=== PATIENT | female | born 2000 | race American Indian/Alaskan Native ===

== ENCOUNTER 2018-01-27 13:02 | Inpatient (IN) | payer BC ==
[2018-01-27] MEDS ORDERED: Sodium Chloride 0.9% 1,000 ML IV ONE (13:51)
[2018-01-27] MEDS ORDERED: Enoxaparin 40 mg Syringe SC STA (13:53)
--- NOTE | 2018-01-27 13:54 | C.PDOC ---
History Of Present Illness 17 year old female presents to the emergency room accompanied by her family with complaints of right leg swelling from her knee down to her foot for the last weeks. She reports that she sprained her knee three weeks ago while dancing. She decided two weeks ago to wear a knee brace. While wearing the knee brace, she dropped a bottle on her foot at work approx 1 week ago and reports that her lower leg began to swell. Time Seen by Provider: 01/27/18 13:22 Chief Complaint (Nursing): Lower Extremity Problem/Injury History Per: Patient History/Exam Limitations: no limitations Onset/Duration Of Symptoms: Days (3 weeks) Current Symptoms Are (Timing): Still Present - Knee Description Of Injury: Fell (while dancing) - Ankle/Foot Description Of Injury: Other (dropped an object on her foot while at work) Past Medical History Reviewed: Historical Data, Nursing Documentation, Vital Signs Vital Signs: Last Vital Signs Temp 98 F 01/27/18 17:13 Pulse 92 H 01/27/18 17:13 Resp 20 01/27/18 17:13 BP 107/68 01/27/18 17:13 Pulse Ox 97 01/27/18 17:13 - Medical History PMH: No Chronic Diseases Surgical History: No Surg Hx Family History: States: No Known Family Hx - Social History Hx Alcohol Use: No Hx Substance Use: No - Immunization History Hx Tetanus Toxoid Vaccination: No Hx Influenza Vaccination: No Hx Pneumococcal Vaccination: No Review Of Systems Except As Marked, All Systems Reviewed And Found Negative. Musculoskeletal: Positive for: Leg Pain (sprain, swelling.) Physical Exam - Physical Exam Appears: Well, Non-toxic Skin: Normal Color, Warm Head: Atraumatic, Normacephalic Eye(s): bilateral: Normal Inspection Ear(s): Bilateral: Normal Nose: Normal Oral Mucosa: Moist Tongue: Normal Appearing Neck: Normal, Supple Chest: Symmetrical Cardiovascular: Rhythm Regular Respiratory: Normal Breath Sounds Gastrointestinal/Abdominal: Normal Exam Extremity: Pedal Edema (3/4 pitting edema to the right lower leg.) Neurological/Psych: Oriented x3, Normal Speech, Normal Cognition ED Course And Treatment - Laboratory Results Result Diagrams: 01/27/18 14:06 01/27/18 14:06 Lab Interpretation: Abnormal (+ d-dimer 759 H) Urine POC: Negative ECG: Interpreted By Me ECG Rhythm: Sinus Rhythm ECG Interpretation: Normal (74) O2 Sat by Pulse Oximetry: 97 (RA) Pulse Ox Interpretation: Normal - Radiology CXR: Interpreted by Me CXR Interpretation: Yes: No Acute Disease - Other Rad R foot X-Ray: Interpreted by Me (neg) Reevaluation Time: 15:56 (\) Reassessment Condition: Improved - Physician Consult Information Outcome Of Conversation: 1515: d/w Dr. Pennie Tolentino, ok to admit. 1600: d/w Dr. Piero Lamar- pt's signalling and communications engineer- discussed option to discharge and/or transfer to [facility] close to pt's mother's house. pt too old to admit as a Pediatric pt and [facility] does not have heme/onc consult so pt better served @ - pt's mom and Automated Manufacturing Instructor have discussed and agree pt to stay @ . Medical Decision Making Medical Decision Making: Plan: * ECG * Bloodwork * Lovenox 50mg SC * IV Medications * Tylenol 650mg PO * Urinalysis * Foot X-Ray acute DVT R peroneal probably provoked by R knee brace x 1 week after R knee sprain No h/o coagulation issues. INR 1.0 Impression: Foot X-Ray: no acute fracture or dislocation. 14:59pm Right Lower Extremity: abnormal findings of deep vein at the peroneal vein. Left Lower Extremity: no abnormal findings of the examined veins. Disposition Doctor Will See Patient In The: Hospital Counseled Patient/Family Regarding: Studies Performed, Diagnosis - Disposition Disposition: HOSPITALIZED Disposition Time: 16:01 Condition: GOOD - Clinical Impression Clinical Impression: Deep venous thrombosis of lower extremity - Scribe Statement The provider has reviewed the documentation as recorded by the Scribe (Markie Donny) Provider Attestation: All medical record entries made by the Scribe were at my direction and personally dictated by me. I have reviewed the chart and agree that the record accurately reflects my personal performance of the history, physical exam, medical decision making, and the department course for this patient. I have also personally directed, reviewed, and agree with the discharge instructions and disposition.
[2018-01-27 14:10] LABS: BASO # 0.1 K/uL (0.0-0.2); BASO % 1.3 % (0.0-2.0); EOS # 0.6 K/uL (0.0-0.7); EOS % 9.1 % (0.0-4.0); HEMOGLOBIN 11.9 g/dL (11.0-16.0); LYMPH # 1.2 K/uL (1.0-4.3); LYMPH % 17.8 % (20.0-40.0); MEAN CELL VOLUME 88.8 fL (81.0-99.0); MEAN CORPUSCULAR HEMOGLOBIN 29.2 pg (27.0-31.0); MEAN CORPUSCULAR HGB CONC 32.9 g/dL (33.0-37.0); MEAN PLATELET VOLUME 8.3 fL (7.2-11.7); MONO # 0.4 K/uL (0.0-0.8); MONO % 6.4 % (0.0-10.0); NEUT # 4.4 K/uL (1.8-7.0); NEUT % 65.4 % (50.0-75.0); RBC 4.09 Mil/uL (3.80-5.20); RED CELL DISTRIBUTION WIDTH 13.6 % (11.5-14.5); WHITE BLOOD COUNT 6.7 K/uL (4.8-10.8)
[2018-01-27 14:19] LABS: SQUAMOUS EPITHIAL 70 /hpf (0-5); URINE BACTERIA MANY (<OCC); URINE BILIRUBIN NEGATIVE (NEGATIVE); URINE BLOOD NEGATIVE (NEGATIVE); URINE CLARITY Hazy (Clear); URINE COLOR Amber (YELLOW); URINE GLUCOSE (UA) NORMAL (Normal); URINE LEUKOCYTE ESTERASE 2+ Leu/uL (Negative); URINE PROTEIN 1+ mg/dL (NEGATIVE)
[2018-01-27] MEDS ORDERED: Enoxaparin 60 mg Syringe ONE (14:20)
[2018-01-27 14:23] LABS: ALB/GLOB RATIO 1.1 (1.0-2.1); ALBUMIN 4.1 g/dL (3.5-5.0); ALT/SGPT 9 U/L (9-52); AST/SGOT 22 U/L (14-36); BLOOD UREA NITROGEN 8 mg/dL (7-17); CALCIUM 8.9 mg/dl (8.6-10.4); GFR AFRICAN-AMERICAN > 60; GFR NON-AFRICAN AMERICAN > 60; HCG,QUALITATIVE URINE NEGATIVE (NEGATIVE)
[2018-01-27 14:29] LABS: INR 1.1; PROTHROMBIN TIME 12.3 SECONDS (9.7-12.2)
[2018-01-27 14:34] LABS: B-TYPE NATRIURETIC PEPTIDE 34.3 pg/mL (0-450)
[2018-01-27 14:39] LABS: BARBITURATES, UR NEGATIVE (NEGATIVE); BENZODIAZEPINES, UR NEGATIVE (NEGATIVE); OPIATES, UR NEGATIVE (NEGATIVE); PHENCYCLIDINE, UR NEGATIVE (NEGATIVE)
--- NOTE | 2018-01-27 16:29 | RAD ---
PROCEDURE: Right Foot Radiographs. HISTORY: sprain foot 2 weeks ago COMPARISON: None. FINDINGS: BONES: Bone alignment and mineralization are normal. No acute fracture or bone destruction. JOINTS: Normal. SOFT TISSUES: Normal. OTHER FINDINGS: None. IMPRESSION: No acute fracture or dislocation.
--- NOTE | 2018-01-27 18:23 | CP.PCM.HP ---
History of Present Illness - History of Present Illness History of Present Illness: Patient is a 17 year old female who denies past medical history who presented with complaint right leg pain and swelling. Patient states about 3 weeks ago she was dancing and hurt her right knee. She denies twisting knee or falling. She states she was wearing soft brace on right knee and was ambulating with a limp. 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 She states at work about one week ago she dropped a glass bottle on right foot. She reports ecchymosis right lateral foot following that injury. She states she cannot move her right foot due to pain. She also reports shortness of breath for the past one week. She states she has needed to take breaks while climbing stairs due to dyspnea for the past week which is abnormal for her. She also reports pain on inspiration for the past week. She states pain in chest is deep inside and feels sharp and stabbing in nature. Patient's mother is at bedside and denies family history of blood clots or recurrent miscarriages. Patient denies history of oral contraceptives or smoking. Past Patient History - Past Social History Smoking Status: Never Smoked - MUSCULOSKELETAL/RHEUMATOLOGICAL Hx Falls: No - PSYCHIATRIC Hx Substance Use: No - SURGICAL HISTORY Hx Surgeries: No - ANESTHESIA Hx Anesthesia: No Hx Anesthesia Reactions: No Hx Malignant Hyperthermia: No Meds Allergies/Adverse Reactions: Allergies Allergy/AdvReac Type Severity Reaction Status Date / Time No Known Allergies Allergy Unverified 01/27/18 13:17 Physical Exam - Constitutional Appears: Well - Head Exam Head Exam: ATRAUMATIC, NORMAL INSPECTION, NORMOCEPHALIC - Eye Exam Eye Exam: EOMI, Normal appearance, PERRL Pupil Exam: NORMAL ACCOMODATION, PERRL - ENT Exam ENT Exam: Mucous Membranes Moist, Normal Exam - Neck Exam Neck exam: Positive for: Normal Inspection - Respiratory Exam Respiratory Exam: Decreased Breath Sounds - Cardiovascular Exam Cardiovascular Exam: REGULAR RHYTHM, +S1, +S2 - GI/Abdominal Exam GI & Abdominal Exam: Diminished Bowel Sounds, Soft - Rectal Exam Rectal Exam: Deferred Results - Vital Signs Recent Vital Signs: Last Vital Signs Temp 98 F 01/27/18 17:13 Pulse 92 H 01/27/18 17:13 Resp 20 01/27/18 17:13 BP 107/68 01/27/18 17:13 Pulse Ox 97 01/27/18 17:13 - Labs Result Diagrams: 01/28/18 06:17 01/28/18 06:17 Labs: Laboratory Results - last 24 hr 01/27/18 01/27/18 01/27/18 14:06 14:06 14:06 WBC 6.7 RBC 4.09 Hgb 11.9 Hct 36.3 MCV 88.8 MCH 29.2 MCHC 32.9 L RDW 13.6 Plt Count 338 MPV 8.3 Neut % (Auto) 65.4 Lymph % (Auto) 17.8 L Haywood % (Auto) 6.4 Eos % (Auto) 9.1 H Baso % (Auto) 1.3 Neut # (Auto) 4.4 Lymph # (Auto) 1.2 Haywood # (Auto) 0.4 Eos # (Auto) 0.6 Baso # (Auto) 0.1 PT 12.3 H INR 1.1 APTT 29 D-Dimer, Quantitative 759 H Sodium 141 Potassium 4.0 Chloride 103 Carbon Dioxide 28 Anion Gap 14 BUN 8 Creatinine 0.7 Est GFR ( Amer) > 60 Est GFR (Non-Af Amer) > 60 Random Glucose 95 Calcium 8.9 Total Bilirubin 0.5 AST 22 ALT 9 Alkaline Phosphatase 70 Troponin I < 0.0120 NT-Pro-B Natriuret Pep 34.3 Total Protein 7.7 Albumin 4.1 Globulin 3.6 Albumin/Globulin Ratio 1.1 Urine Color Urine Clarity Urine pH Ur Specific Riggins Urine Protein Urine Glucose (UA) Urine Ketones Urine Blood Urine Nitrate Urine Bilirubin Urine Urobilinogen Ur Leukocyte Esterase Urine WBC (Auto) Urine RBC (Auto) Ur Squamous Epith Cells Urine Bacteria Urine HCG, Qual Urine Opiates Screen Urine Methadone Screen Ur Barbiturates Screen Ur Phencyclidine Scrn Ur Amphetamines Screen U Benzodiazepines Scrn U Oth Cocaine Metabols U Cannabinoids Screen 01/27/18 01/27/18 14:06 14:06 WBC RBC Hgb Hct MCV MCH MCHC RDW Plt Count MPV Neut % (Auto) Lymph % (Auto) Haywood % (Auto) Eos % (Auto) Baso % (Auto) Neut # (Auto) Lymph # (Auto) Haywood # (Auto) Eos # (Auto) Baso # (Auto) PT INR APTT D-Dimer, Quantitative Sodium Potassium Chloride Carbon Dioxide Anion Gap BUN Creatinine Est GFR ( Amer) Est GFR (Non-Af Amer) Random Glucose Calcium Total Bilirubin AST ALT Alkaline Phosphatase Troponin I NT-Pro-B Natriuret Pep Total Protein Albumin Globulin Albumin/Globulin Ratio Urine Color Fernanda Urine Clarity Hazy Urine pH 6.0 Ur Specific Riggins 1.027 Urine Protein 1+ H Urine Glucose (UA) Normal Urine Ketones Trace Urine Blood Negative Urine Nitrate Positive H Urine Bilirubin Negative Urine Urobilinogen 4.0 H Ur Leukocyte Esterase 2+ H Urine WBC (Auto) 26 H Urine RBC (Auto) 2 Ur Squamous Epith Cells 70 H Urine Bacteria Many H Urine HCG, Qual Negative Urine Opiates Screen Negative Urine Methadone Screen Negative Ur Barbiturates Screen Negative Ur Phencyclidine Scrn Negative Ur Amphetamines Screen Negative U Benzodiazepines Scrn Negative U Oth Cocaine Metabols Negative U Cannabinoids Screen Negative
[2018-01-28 06:28] LABS: BASO # 0.1 K/uL (0.0-0.2); BASO % 1.2 % (0.0-2.0); EOS # 0.8 K/uL (0.0-0.7); EOS % 9.6 % (0.0-4.0); HEMOGLOBIN 11.5 g/dL (11.0-16.0); LYMPH # 2.3 K/uL (1.0-4.3); LYMPH % 27.3 % (20.0-40.0); MEAN CELL VOLUME 88.6 fL (81.0-99.0); MEAN CORPUSCULAR HEMOGLOBIN 29.2 pg (27.0-31.0); MEAN CORPUSCULAR HGB CONC 32.9 g/dL (33.0-37.0); MEAN PLATELET VOLUME 8.2 fL (7.2-11.7); MONO # 0.7 K/uL (0.0-0.8); MONO % 8.5 % (0.0-10.0); NEUT # 4.4 K/uL (1.8-7.0); NEUT % 53.4 % (50.0-75.0); NRBC % 0.1 % (0.0-2.0); RBC 3.94 Mil/uL (3.80-5.20); RED CELL DISTRIBUTION WIDTH 13.2 % (11.5-14.5); WHITE BLOOD COUNT 8.3 K/uL (4.8-10.8)
[2018-01-28 06:44] LABS: ALBUMIN 3.5 g/dL (3.5-5.0); ALT/SGPT 12 U/L (9-52); AST/SGOT 22 U/L (14-36); BLOOD UREA NITROGEN 5 mg/dL (7-17); CALCIUM 8.6 mg/dl (8.6-10.4); GFR AFRICAN-AMERICAN > 60; GFR NON-AFRICAN AMERICAN > 60
[2018-01-28] MEDS: Pantoprazole 40 mg EC Tab PO SCH (09:01)
[2018-01-28] MEDS ORDERED: Tramadol 25 mg PO PRN (09:37)
--- NOTE | 2018-01-28 09:50 | CP.PCM.PN ---
<Gypsy Marcial DO - Last Filed: 01/28/18 12:54> Subjective - Date & Time of Evaluation Date of Evaluation: 01/28/18 Time of Evaluation: 09:46 - Subjective Subjective: Medicine progress note for Dr. Tolentino's service Patient is a 17 year old female who denies past medical history who presented with complaint right leg pain and swelling. Patient states about 3 weeks ago she was dancing and hurt her right knee. She denies twisting knee or falling. She states she was wearing soft brace on right knee and was ambulating with a limp. 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 She states at work about one week ago she dropped a glass bottle on right foot. She reports ecchymosis right lateral foot following that injury. She states she cannot move her right foot due to pain. She also reports shortness of breath for the past one week. She states she has needed to take breaks while climbing stairs due to dyspnea for the past week which is abnormal for her. She also reports pain on inspiration for the past week. She states pain in chest is deep inside and feels sharp and stabbing in nature. Patient's mother is at bedside and denies family history of blood clots or recurrent miscarriages. Patient denies history of oral contraceptives or smoking. Objective - Vital Signs/Intake and Output Vital Signs (last 24 hours): Temp Pulse Resp BP Pulse Ox 97.9 F 64 18 99/64 L 100 01/28/18 07:30 01/28/18 07:30 01/28/18 07:30 01/28/18 07:30 01/28/18 07:30 - Medications Medications: Current Medications Acetaminophen (Tylenol 325mg Tab) 650 mg PO Q6 PRN PRN Reason: Pain, Mild (1-3) Enoxaparin Sodium (Lovenox) 60 mg SC DAILY [facility] Last Admin: 01/28/18 09:01 Dose: 60 mg Ibuprofen (Motrin Tab) 600 mg PO TID PRN PRN Reason: Pain, moderate (4-7) Pantoprazole Sodium (Protonix Ec Tab) 40 mg PO DAILY [facility] Last Admin: 01/28/18 09:01 Dose: 40 mg - Labs Labs: 01/28/18 06:17 01/28/18 06:17 PT 12.3 SECONDS (9.7-12.2) H 01/27/18 14:06 INR 1.1 01/27/18 14:06 APTT 29 SECONDS (21-34) 01/27/18 14:06 - Constitutional Appears: Non-toxic, No Acute Distress - Head Exam Head Exam: ATRAUMATIC, NORMOCEPHALIC - Eye Exam Eye Exam: EOMI - ENT Exam ENT Exam: Mucous Membranes Moist - Respiratory Exam Respiratory Exam: Clear to Ausculation Bilateral, NORMAL BREATHING PATTERN. absent: Chest Wall Tenderness - Cardiovascular Exam Cardiovascular Exam: +S1, +S2 - GI/Abdominal Exam GI & Abdominal Exam: Soft, Normal Bowel Sounds. absent: Tenderness - Extremities Exam Extremities Exam: absent: Calf Tenderness Additional comments: right lateral malleolus with ecchymotic lesion, diffuse tenderness on palpation of right foot, intact sensation to right foot and toes, patient cannot move foot due to pain - Neurological Exam Neurological Exam: Alert, Awake - Psychiatric Exam Psychiatric exam: Normal Affect, Normal Mood - Skin Skin Exam: Dry, Warm Assessment and Plan - Assessment and Plan (Free Text) Assessment: Acute Right leg DVT lower extremity venous duplex positive for acute dvt of right peroneal vein patient started on therapeutic lovenox, 60mg SC Q12h DVT seems to be provoked from prior injury and immobilization with knee brace, however will order hypercoaguable workup will continue to monitor for pain CTA chest positive for pulmonary embolus distal right lower lobe segmental pulmonary artery brach with some extension of the clot slightly distally into at least 2 proximal subsegmental branches Heme-onc, Dr. Gama, consulted-help appreciated Dyspnea patient experiencing pleuritic chest pain on inspiration CTA positive for pulmonary embolus as detailed above pulm consulted, Dr. Briscoe, help appreciated continue therapeutic lovenox Heme-onc on board Prophylactic measure therapeutic lovenox protonix 40mg PO daily PT A&D ointment for dry skin as needed Medical management as per Dr. Tolentino <Raman Tolentino S - Last Filed: 01/28/18 20:09> Objective - Vital Signs/Intake and Output Vital Signs (last 24 hours): Temp Pulse Resp BP Pulse Ox 98.1 F 63 18 120/82 96 01/28/18 15:42 01/28/18 15:42 01/28/18 15:42 01/28/18 15:42 01/28/18 15:42 Intake and Output: 01/28/18 01/29/18 18:59 06:59 Intake Total 300 Balance 300 - Medications Medications: Current Medications Acetaminophen (Tylenol 325mg Tab) 650 mg PO Q6 PRN PRN Reason: Pain, Mild (1-3) Last Admin: 01/28/18 10:09 Dose: 650 mg Enoxaparin Sodium (Lovenox) 60 mg SC Q12 [facility] Ibuprofen (Motrin Tab) 600 mg PO TID PRN PRN Reason: Pain, moderate (4-7) Pantoprazole Sodium (Protonix Ec Tab) 40 mg PO DAILY [facility] Last Admin: 01/28/18 09:01 Dose: 40 mg Vitamin A (Vitamin A&D) 0 applic TP BID PRN PRN Reason: Dry skin Last Admin: 01/28/18 14:51 Dose: 1 applic - Labs Labs: 01/28/18 06:17 01/28/18 06:17 PT 12.3 SECONDS (9.7-12.2) H 01/27/18 14:06 INR 1.1 01/27/18 14:06 APTT 29 SECONDS (21-34) 01/27/18 14:06 Attending/Attestation - Attestation I have personally seen and examined this patient.: Yes I have fully participated in the care of the patient.: Yes I have reviewed all pertinent clinical information, including history, physical exam and plan: Yes Notes (Text): 01/28/18 20:08 case sen and d/w staff agree th mx and discussed mx
[2018-01-28] MEDS ORDERED: Enoxaparin 60 mg Syringe SC SCH ×2 (10:00)
[2018-01-28] MEDS ORDERED: Iodixanol 320 MG/ML 100 ML BOTTLE IV ONE (10:44)
--- NOTE | 2018-01-28 12:43 | CT ---
PROCEDURE: CT Chest with contrast (Pulmonary Angiogram) HISTORY: Acute DVT, dyspnea COMPARISON: No prior study available for comparison TECHNIQUE: Axial computed tomography images were obtained of the chest in the pulmonary arterial phase of enhancement. Coronal and sagittal reformatted images were created and reviewed. Intravenous contrast dose: 100 cc Omnipaque 300 Radiation dose: Total exam DLP = 146.51 mGy-cm. This CT exam was performed using one or more of the following dose reduction techniques: Automated exposure control, adjustment of the mA and/or kV according to patient size, and/or use of iterative reconstruction technique. FINDINGS: PULMONARY ARTERIES: Current study reveals a filling defect within right lower lobe segmental pulmonary artery branch consistent with a pulmonary embolus. . There appears to be some minimal extension into the distally located proximal subsegmental branches right lower lobe as well. Pulmonary trunk measures approximately 2.48 cm. AORTA: No evidence of thoracic aortic aneurysm. The ascending thoracic aorta measures approximately 2.54 cm and descending thoracic aorta measures approximately 2.0 cm. LUNGS: Unremarkable. No nodule, mass or pulmonary consolidation. . PLEURAL SPACES: Unremarkable. No effusion or pneumothorax HEART: Heart size within range of normal. . No significant pericardial effusion. LYMPH NODES: There is a small approximately 10 mm right hilar lymph node. BONES, CHEST WALL: Unremarkable. No fracture or destructive lesion OTHER FINDINGS: Unremarkable. IMPRESSION: There is a pulmonary embolus seen within the distal right lower lobe segmental pulmonary artery branch with some extension of the clot slightly distally into at least 2 proximal subsegmental branches. These findings were discussed with 5th floor Nurse Rajan at approximately 12:30 p.m. with written down and read back verification. No acute infiltrates.
[2018-01-28] MEDS ORDERED: Vitamin A/D oint 60G TP PRN (12:44)
--- NOTE | 2018-01-28 12:49 | VASCLAB ---
PROCEDURE: Bilateral Lower Extremity Venous Duplex Exam. Furniture Stainer. HISTORY: Right lower leg edema, pain in limb, r/o DVT PRIORS: None. TECHNIQUE: Bilateral common femoral, femoral, popliteal and posterior tibial, peroneal and great saphenous veins were evaluated. Flow was assessed with color Doppler, compressibility, assessment of phasic flow and augmentation response. Report prepared by STEPHIE Segura FINDINGS: RIGHT: 1. Common Femoral Vein: 1.1. Compressibility - Fully compressible: Thrombus - None : Flow - Phasic: Augmentation -Normal: Reflux - None. 2. Femoral Vein: 2.1. Compressibility - Fully compressible: Thrombus - None : Flow - Phasic: Augmentation -Normal: Reflux - None. 3. Popliteal Vein: 3.1. Compressibility - Fully compressible: Thrombus - None : Flow - Phasic: Augmentation -Normal: Reflux - None. 4. Posterior Tibial Vein: 4.1. Compressibility - Fully compressible: Thrombus - None: Flow - Phasic: Augmentation -Normal: Reflux - None. 5. Peroneal Vein: (one vein non compressible) 5.1. Compressibility - Incompressible: Thrombus - Acute: Flow - Reduced : Augmentation -Normal: Reflux - None. 6. Great Saphenous Vein: 6.1. Compressibility - Fully compressible: Thrombus - None: Flow - Phasic: Augmentation - Normal: Reflux - None. LEFT: 1. Common Femoral Vein: 1.1. Compressibility - Fully compressible: Thrombus - None: Flow - Phasic: Augmentation -Normal: Reflux - None. 2. Femoral Vein: 2.1. Compressibility - Fully compressible: Thrombus - None: Flow - Phasic: Augmentation -Normal: Reflux - None. 3. Popliteal Vein: 3.1. Compressibility - Fully compressible: Thrombus - None : Flow - Phasic: Augmentation -Normal: Reflux - None. 4. Posterior Tibial Vein: 4.1. Compressibility - Fully compressible: Thrombus - None: Flow - Phasic: Augmentation -Normal: Reflux - None. 5. Peroneal Vein: 5.1. Compressibility - Fully compressible: Thrombus - None: Flow - Phasic: Augmentation -Normal: Reflux - None. 6. Great Saphenous Vein: 6.1. Compressibility - Fully compressible: Thrombus - None: Flow - Phasic: Augmentation - Normal: Reflux - None. OTHER FINDINGS: None significant. IMPRESSION: Right: Acute deep vein thrombosis of one right peroneal vein at the mid calf level, with moderate reduction of the venous return. Left: No evidence of deep or superficial vein thrombosis of the left lower extremity. Normal valve function noted of the left side. The above findings were provided by the special procedure technologist, to the Sohan High, at 3:03 p.m.
--- NOTE | 2018-01-28 14:23 | CP.PCM.PN ---
Subjective - Date & Time of Evaluation Date of Evaluation: 01/28/18 Time of Evaluation: 09:20 - Subjective Subjective: clinically same Objective - Vital Signs/Intake and Output Vital Signs (last 24 hours): Temp Pulse Resp BP Pulse Ox 97.9 F 64 18 99/64 L 100 01/28/18 07:30 01/28/18 07:30 01/28/18 07:30 01/28/18 07:30 01/28/18 07:30 - Medications Medications: Current Medications Acetaminophen (Tylenol 325mg Tab) 650 mg PO Q6 PRN PRN Reason: Pain, Mild (1-3) Last Admin: 01/28/18 10:09 Dose: 650 mg Enoxaparin Sodium (Lovenox) 60 mg SC Q12 [facility] Ibuprofen (Motrin Tab) 600 mg PO TID PRN PRN Reason: Pain, moderate (4-7) Pantoprazole Sodium (Protonix Ec Tab) 40 mg PO DAILY [facility] Last Admin: 01/28/18 09:01 Dose: 40 mg Vitamin A (Vitamin A&D) 0 applic TP BID PRN PRN Reason: Dry skin - Labs Labs: 01/28/18 06:17 01/28/18 06:17 PT 12.3 SECONDS (9.7-12.2) H 01/27/18 14:06 INR 1.1 01/27/18 14:06 APTT 29 SECONDS (21-34) 01/27/18 14:06 - Constitutional Appears: Well - Head Exam Head Exam: ATRAUMATIC, NORMAL INSPECTION, NORMOCEPHALIC - Eye Exam Eye Exam: EOMI, Normal appearance, PERRL Pupil Exam: NORMAL ACCOMODATION, PERRL - ENT Exam ENT Exam: Mucous Membranes Moist, Normal Exam - Neck Exam Neck Exam: Full ROM, Normal Inspection. absent: Lymphadenopathy - Respiratory Exam Respiratory Exam: Decreased Breath Sounds - Cardiovascular Exam Cardiovascular Exam: REGULAR RHYTHM, +S1, +S2 - GI/Abdominal Exam GI & Abdominal Exam: Soft, Diminished Bowel Sounds - Rectal Exam Rectal Exam: Deferred Assessment and Plan - Assessment and Plan (Free Text) Plan: Acute Right leg DVT lower extremity venous duplex positive for acute dvt of right peroneal vein patient started on therapeutic lovenox, 60mg SC Q12h DVT seems to be provoked from prior injury and immobilization with knee brace, however will order hypercoaguable workup will continue to monitor for pain CTA chest positive for pulmonary embolus distal right lower lobe segmental pulmonary artery brach with some extension of the clot slightly distally into at least 2 proximal subsegmental branches Heme-onc, Dr. Gama, consulted-help appreciated Dyspnea patient experiencing pleuritic chest pain on inspiration CTA positive for pulmonary embolus as detailed above pulm consulted, Dr. Briscoe, help appreciated continue therapeutic lovenox Heme-onc on board Prophylactic measure therapeutic lovenox protonix 40mg PO daily PT A&D ointment for dry skin as needed
--- NOTE | 2018-01-28 18:07 | CP.PCM.CON ---
History of Present Illness - History of Present Illness History of Present Illness: reason for consultation: pulmonary embolism Patient is a 17-year-old female with no significant past medical history who presented to emergency room with right leg swelling and shortness of breath/ chest pain. Patient states that she sprained her right knee 2-3 weeks ago while dancing and later dropped a bottle on her foot at work 1 week ago. Patient had difficulty walking and leg began to swell. she came to the hospital and found to have right peroneal vein thrombus and right PE. Review of Systems - Review of Systems All systems: reviewed and no additional remarkable complaints except (shortness of breath and right leg swelling) Past Patient History - Past Social History Smoking Status: Never Smoked - MUSCULOSKELETAL/RHEUMATOLOGICAL Hx Falls: No - PSYCHIATRIC Hx Substance Use: No - SURGICAL HISTORY Hx Surgeries: No - ANESTHESIA Hx Anesthesia: No Hx Anesthesia Reactions: No Hx Malignant Hyperthermia: No Meds Allergies/Adverse Reactions: Allergies Allergy/AdvReac Type Severity Reaction Status Date / Time No Known Allergies Allergy Unverified 01/27/18 13:17 - Medications Medications: Current Medications Acetaminophen (Tylenol 325mg Tab) 650 mg PO Q6 PRN PRN Reason: Pain, Mild (1-3) Last Admin: 01/28/18 10:09 Dose: 650 mg Enoxaparin Sodium (Lovenox) 60 mg SC Q12 [facility] Ibuprofen (Motrin Tab) 600 mg PO TID PRN PRN Reason: Pain, moderate (4-7) Pantoprazole Sodium (Protonix Ec Tab) 40 mg PO DAILY [facility] Last Admin: 01/28/18 09:01 Dose: 40 mg Vitamin A (Vitamin A&D) 0 applic TP BID PRN PRN Reason: Dry skin Last Admin: 01/28/18 14:51 Dose: 1 applic Physical Exam - Head Exam Head Exam: ATRAUMATIC, NORMOCEPHALIC - ENT Exam ENT Exam: Mucous Membranes Moist - Neck Exam Neck exam: Positive for: Normal Inspection - Respiratory Exam Respiratory Exam: Clear to Auscultation Bilateral - Cardiovascular Exam Cardiovascular Exam: REGULAR RHYTHM - GI/Abdominal Exam GI & Abdominal Exam: Normal Bowel Sounds, Soft - Extremities Exam Extremities exam: Positive for: calf tenderness - Neurological Exam Neurological exam: Alert, Oriented x3 Results - Vital Signs Recent Vital Signs: Last Vital Signs Temp 98.1 F 01/28/18 15:42 Pulse 63 01/28/18 15:42 Resp 18 01/28/18 15:42 BP 120/82 01/28/18 15:42 Pulse Ox 96 01/28/18 15:42 - Labs Result Diagrams: 01/29/18 08:11 01/28/18 06:17 Labs: Laboratory Results - last 24 hr 01/28/18 01/28/18 06:17 06:17 WBC 8.3 RBC 3.94 Hgb 11.5 Hct 34.9 MCV 88.6 MCH 29.2 MCHC 32.9 L RDW 13.2 Plt Count 365 MPV 8.2 Neut % (Auto) 53.4 Lymph % (Auto) 27.3 [place] % (Auto) 8.5 Eos % (Auto) 9.6 H Baso % (Auto) 1.2 Neut # (Auto) 4.4 Lymph # (Auto) 2.3 [place] # (Auto) 0.7 Eos # (Auto) 0.8 H Baso # (Auto) 0.1 Sodium 143 Potassium 4.0 Chloride 107 Carbon Dioxide 26 Anion Gap 14 BUN 5 L Creatinine 0.7 Est GFR ( Amer) > 60 Est GFR (Non-Af Amer) > 60 Random Glucose 88 Calcium 8.6 Total Bilirubin 0.5 AST 22 ALT 12 Alkaline Phosphatase 61 Total Protein 7.0 Albumin 3.5 Globulin 3.5 Albumin/Globulin Ratio 1.0 Assessment & Plan (1) Pulmonary embolism Status: Acute Comment: secondary to right foot injury/immobility. Continue Lovenox. Switch to NOAC (2) Deep venous thrombosis of lower extremity Status: Acute
[2018-01-28] MEDS: Enoxaparin 60 mg Syringe SC SCH (22:16)
--- NOTE | 2018-01-28 23:28 | CARD ---
APPROVED REPORT EKG Measurement Heart [id number] <Conclusion> Sinus rhythm with sinus arrhythmia with short NC Otherwise normal ECG
--- NOTE | 2018-01-29 | CP.PCM.CON ---
History of Present Illness - History of Present Illness History of Present Illness: 17 year old female admitted with right DVT and PE. The patient reports to hurting her knee dancing about 3 weeks ago which left her with a limp. She dropped a bottle on her foot 1 week ago and notes to increased swelling of her right foot and pain. Due to worsening pain, she came to the hospital and found to have right peroneal vein thrombus and right PE. She does not use control or hormonal supplementation. Past medical history: None Past surgical history: None Family history: Denies hematologic and oncologic problems Social history: Denies tobacco, drinks alcohol, denies illicit drug use. Allergies: NKA Review of systems: All remaining review of systems including HEENT, cardiovascular, respiratory, gastrointestinal, genitourinary, musculoskeletal, dermatologic, neurologic, and psychiatric are negative unless mentioned in the HPI. Past Patient History - Past Social History Smoking Status: Never Smoked - MUSCULOSKELETAL/RHEUMATOLOGICAL Hx Falls: No - PSYCHIATRIC Hx Substance Use: No - SURGICAL HISTORY Hx Surgeries: No - ANESTHESIA Hx Anesthesia: No Hx Anesthesia Reactions: No Hx Malignant Hyperthermia: No Meds Allergies/Adverse Reactions: Allergies Allergy/AdvReac Type Severity Reaction Status Date / Time No Known Allergies Allergy Unverified 01/27/18 13:17 - Medications Medications: Current Medications Acetaminophen (Tylenol 325mg Tab) 650 mg PO Q6 PRN PRN Reason: Pain, Mild (1-3) Last Admin: 01/28/18 10:09 Dose: 650 mg Enoxaparin Sodium (Lovenox) 60 mg SC Q12 [facility] Last Admin: 01/28/18 22:16 Dose: 60 mg Ibuprofen (Motrin Tab) 600 mg PO TID PRN PRN Reason: Pain, moderate (4-7) Pantoprazole Sodium (Protonix Ec Tab) 40 mg PO DAILY [facility] Last Admin: 01/28/18 09:01 Dose: 40 mg Vitamin A (Vitamin A&D) 0 applic TP BID PRN PRN Reason: Dry skin Last Admin: 01/28/18 14:51 Dose: 1 applic Physical Exam - Head Exam Head Exam: ATRAUMATIC - Eye Exam Eye Exam: Normal appearance - ENT Exam ENT Exam: Mucous Membranes Dry - Respiratory Exam Respiratory Exam: NORMAL BREATHING PATTERN - Cardiovascular Exam Cardiovascular Exam: +S1, +S2 - GI/Abdominal Exam GI & Abdominal Exam: Normal Bowel Sounds - Extremities Exam Extremities exam: Positive for: pedal edema - Neurological Exam Neurological exam: Oriented x3 - Psychiatric Exam Psychiatric exam: Normal Affect, Normal Mood - Skin Skin Exam: Warm Results - Vital Signs Recent Vital Signs: Last Vital Signs Temp 98.1 F 01/28/18 15:42 Pulse 63 01/28/18 15:42 Resp 18 01/28/18 15:42 BP 120/82 01/28/18 15:42 Pulse Ox 96 01/28/18 15:42 - Labs Result Diagrams: 01/28/18 06:17 01/28/18 06:17 Labs: Laboratory Results - last 24 hr 01/28/18 01/28/18 06:17 06:17 WBC 8.3 RBC 3.94 Hgb 11.5 Hct 34.9 MCV 88.6 MCH 29.2 MCHC 32.9 L RDW 13.2 Plt Count 365 MPV 8.2 Neut % (Auto) 53.4 Lymph % (Auto) 27.3 [place] % (Auto) 8.5 Eos % (Auto) 9.6 H Baso % (Auto) 1.2 Neut # (Auto) 4.4 Lymph # (Auto) 2.3 [place] # (Auto) 0.7 Eos # (Auto) 0.8 H Baso # (Auto) 0.1 Sodium 143 Potassium 4.0 Chloride 107 Carbon Dioxide 26 Anion Gap 14 BUN 5 L Creatinine 0.7 Est GFR ( Amer) > 60 Est GFR (Non-Af Amer) > 60 Random Glucose 88 Calcium 8.6 Total Bilirubin 0.5 AST 22 ALT 12 Alkaline Phosphatase 61 Total Protein 7.0 Albumin 3.5 Globulin 3.5 Albumin/Globulin Ratio 1.0 Assessment & Plan (1) Deep venous thrombosis of lower extremity Assessment and Plan: provoked from limited mobility from knee and foot injury associated with PE on therapeutic lovenox pt agreeable to outpatient 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 Status: Acute
[2018-01-29 07:48] VITALS: O2SAT 97
[2018-01-29 08:21] LABS: BASO # 0.1 K/uL (0.0-0.2); EOS # 0.6 K/uL (0.0-0.7); EOS % 8.2 % (0.0-4.0); HEMOGLOBIN 11.4 g/dL (11.0-16.0); LYMPH # 1.9 K/uL (1.0-4.3); LYMPH % 26.6 % (20.0-40.0); MEAN CELL VOLUME 88.5 fL (81.0-99.0); MEAN CORPUSCULAR HEMOGLOBIN 29.8 pg (27.0-31.0); MEAN CORPUSCULAR HGB CONC 33.6 g/dL (33.0-37.0); MEAN PLATELET VOLUME 8.9 fL (7.2-11.7); MONO # 0.6 K/uL (0.0-0.8); MONO % 8.3 % (0.0-10.0); NEUT % 55.9 % (50.0-75.0); RBC 3.84 Mil/uL (3.80-5.20); RED CELL DISTRIBUTION WIDTH 13.2 % (11.5-14.5); WHITE BLOOD COUNT 7.2 K/uL (4.8-10.8)
[2018-01-29 08:53] LABS: ALB/GLOB RATIO 1.1 (1.0-2.1); ALBUMIN 3.6 g/dL (3.5-5.0); ALT/SGPT 10 U/L (9-52); AST/SGOT 25 U/L (14-36); BLOOD UREA NITROGEN 10 mg/dL (7-17); CALCIUM 8.6 mg/dl (8.6-10.4); GFR AFRICAN-AMERICAN > 60; GFR NON-AFRICAN AMERICAN > 60
[2018-01-29] MEDS: Enoxaparin 60 mg Syringe SC SCH (09:40)
[2018-01-29] MEDS: Pantoprazole 40 mg EC Tab PO SCH (09:40)
--- NOTE | 2018-01-29 09:47 | CP.PCM.PN ---
Subjective - Date & Time of Evaluation Date of Evaluation: 01/29/18 Time of Evaluation: 09:47 - Subjective Subjective: Medicine progress note for Dr. Tolentino's service Patient seen and examined. Patient states her right leg throbs occasionally but she does not want to take pain medication. Patient states chest discomfort is slightly improved. Patient denies other complaints. Patient's mother at bedside. Objective - Vital Signs/Intake and Output Vital Signs (last 24 hours): Temp Pulse Resp BP Pulse Ox 98.2 F 76 18 103/70 97 01/29/18 07:10 01/29/18 07:10 01/29/18 07:10 01/29/18 07:10 01/29/18 07:10 - Medications Medications: Current Medications Acetaminophen (Tylenol 325mg Tab) 650 mg PO Q6 PRN PRN Reason: Pain, Mild (1-3) Last Admin: 01/28/18 10:09 Dose: 650 mg Enoxaparin Sodium (Lovenox) 60 mg SC Q12 [facility] Last Admin: 01/29/18 09:40 Dose: 60 mg Ibuprofen (Motrin Tab) 600 mg PO TID PRN PRN Reason: Pain, moderate (4-7) Last Admin: 01/29/18 09:39 Dose: 600 mg Pantoprazole Sodium (Protonix Ec Tab) 40 mg PO DAILY [facility] Last Admin: 01/29/18 09:40 Dose: 40 mg Vitamin A (Vitamin A&D) 0 applic TP BID PRN PRN Reason: Dry skin Last Admin: 01/28/18 14:51 Dose: 1 applic - Labs Labs: 01/29/18 08:11 01/29/18 08:11 PT 12.3 SECONDS (9.7-12.2) H 01/27/18 14:06 INR 1.1 01/27/18 14:06 APTT 29 SECONDS (21-34) 01/27/18 14:06 - Constitutional Appears: No Acute Distress - Head Exam Head Exam: ATRAUMATIC, NORMOCEPHALIC - Eye Exam Eye Exam: EOMI - ENT Exam ENT Exam: Mucous Membranes Moist - Respiratory Exam Respiratory Exam: Clear to Ausculation Bilateral, NORMAL BREATHING PATTERN. absent: Respiratory Distress - Cardiovascular Exam Cardiovascular Exam: +S1, +S2. absent: Tachycardia - GI/Abdominal Exam GI & Abdominal Exam: Soft, Normal Bowel Sounds. absent: Tenderness - Extremities Exam Extremities Exam: absent: Calf Tenderness, Pedal Edema Additional comments: ecchymosis to right lateral malleolus tenderness on palpation of dorsum of foot - Neurological Exam Neurological Exam: Alert, Awake - Psychiatric Exam Psychiatric exam: Normal Affect - Skin Skin Exam: Warm Assessment and Plan - Assessment and Plan (Free Text) Assessment: Acute Right leg DVT lower extremity venous duplex positive for acute dvt of right peroneal vein patient started on therapeutic lovenox, 60mg SC Q12h DVT seems to be provoked from prior injury and immobilization with knee brace, however hypercoaguable workup sent will continue to monitor for pain CTA chest positive for pulmonary embolus distal right lower lobe segmental pulmonary artery brach with some extension of the clot slightly distally into at least 2 proximal subsegmental branches Heme-onc, Dr. Gama, consulted-help appreciated insurance will not cover Pradaxa, will discharge patient on Eliquis 10mg PO BID for 7 days, then 5mg PO for remainder of treatment Pulmonary Embolism patient experiencing pleuritic chest pain on inspiration CTA positive for pulmonary embolus as detailed above pulm consulted, Dr. Briscoe, help appreciated- recommend starting NOAC continue therapeutic lovenox Heme-onc on board Prophylactic measure therapeutic lovenox protonix 40mg PO daily PT recommends dc home with PT 3-5x/ week for 2 weeks, will require crutches A&D ointment for dry skin as needed Medical management as per Dr. Tolentino Patient is stable for discharge home per Dr. Tolentino. Patient is to follow up with Dr. Gama as outpatient within the next week following discharge. Patient will need to take new medication Eliquis 10mg twice a day for first 7 days, followed by Eliquis 5mg PO BID for remainder of treatment. Patient will need to follow with Dr. Gama in the next 1-2 weeks for management of this medication. Patient is to follow up with Dr. Pennie Tolentino on 02/04/18. Patient should follow up with her primary medical doctor within the next week following discharge. Patient should return to the ED if her symptoms worsen or reoccur.
--- NOTE | 2018-01-29 15:56 | CP.PCM.PN ---
Subjective - Date & Time of Evaluation Date of Evaluation: 01/29/18 Time of Evaluation: 09:20 - Subjective Subjective: clinically same Objective - Vital Signs/Intake and Output Vital Signs (last 24 hours): Temp Pulse Resp BP Pulse Ox 98.2 F 76 18 103/70 97 01/29/18 07:10 01/29/18 07:10 01/29/18 07:10 01/29/18 07:10 01/29/18 07:10 - Medications Medications: Current Medications Acetaminophen (Tylenol 325mg Tab) 650 mg PO Q6 PRN PRN Reason: Pain, Mild (1-3) Last Admin: 01/29/18 12:50 Dose: 650 mg Dabigatran (Pradaxa) 150 mg PO BID [facility] Ibuprofen (Motrin Tab) 600 mg PO TID PRN PRN Reason: Pain, moderate (4-7) Last Admin: 01/29/18 09:39 Dose: 600 mg Pantoprazole Sodium (Protonix Ec Tab) 40 mg PO DAILY [facility] Last Admin: 01/29/18 09:40 Dose: 40 mg Vitamin A (Vitamin A&D) 0 applic TP BID PRN PRN Reason: Dry skin Last Admin: 01/28/18 14:51 Dose: 1 applic - Labs Labs: 01/29/18 08:11 01/29/18 08:11 PT 12.3 SECONDS (9.7-12.2) H 01/27/18 14:06 INR 1.1 01/27/18 14:06 APTT 29 SECONDS (21-34) 01/27/18 14:06 - Constitutional Appears: Well - Head Exam Head Exam: ATRAUMATIC, NORMAL INSPECTION, NORMOCEPHALIC - Eye Exam Eye Exam: EOMI, Normal appearance, PERRL Pupil Exam: NORMAL ACCOMODATION, PERRL - ENT Exam ENT Exam: Mucous Membranes Moist, Normal Exam - Neck Exam Neck Exam: Full ROM, Normal Inspection. absent: Lymphadenopathy - Respiratory Exam Respiratory Exam: Decreased Breath Sounds - Cardiovascular Exam Cardiovascular Exam: REGULAR RHYTHM, +S1, +S2 - GI/Abdominal Exam GI & Abdominal Exam: Soft, Diminished Bowel Sounds - Rectal Exam Rectal Exam: Deferred
[2018-01-29 16:09] VITALS: BP 106/66; PULSE 70; RESP 20; TEMP 98
--- NOTE | 2018-01-29 16:51 | CP.PCM.PN ---
Subjective - Date & Time of Evaluation Date of Evaluation: 01/29/18 Time of Evaluation: 13:00 - Subjective Subjective: Patient seen and examined Sitting comfortably in no distress Denies shortness of breath Denies cough, denies fevers chills Patient started on eliquis To be discharged home Follow up in the office Objective - Vital Signs/Intake and Output Vital Signs (last 24 hours): Temp Pulse Resp BP Pulse Ox 98.0 F 70 20 106/66 97 01/29/18 15:08 01/29/18 15:08 01/29/18 15:08 01/29/18 15:08 01/29/18 15:08 - Medications Medications: Current Medications Acetaminophen (Tylenol 325mg Tab) 650 mg PO Q6 PRN PRN Reason: Pain, Mild (1-3) Last Admin: 01/29/18 12:50 Dose: 650 mg Apixaban (Eliquis) 10 mg PO BID [facility] Last Admin: 01/29/18 16:21 Dose: 10 mg Ibuprofen (Motrin Tab) 600 mg PO TID PRN PRN Reason: Pain, moderate (4-7) Last Admin: 01/29/18 09:39 Dose: 600 mg Pantoprazole Sodium (Protonix Ec Tab) 40 mg PO DAILY [facility] Last Admin: 01/29/18 09:40 Dose: 40 mg Vitamin A (Vitamin A&D) 0 applic TP BID PRN PRN Reason: Dry skin Last Admin: 01/28/18 14:51 Dose: 1 applic - Labs Labs: 01/29/18 08:11 01/29/18 08:11 PT 12.3 SECONDS (9.7-12.2) H 01/27/18 14:06 INR 1.1 01/27/18 14:06 APTT 29 SECONDS (21-34) 01/27/18 14:06 Assessment and Plan (1) Pulmonary embolism Status: Acute (2) Deep venous thrombosis of lower extremity Status: Acute
--- NOTE | 2018-01-29 17:39 | CP.PCM.PN ---
Subjective - Date & Time of Evaluation Date of Evaluation: 01/29/18 Time of Evaluation: 13:15 - Subjective Subjective: Feeling better Objective - Vital Signs/Intake and Output Vital Signs (last 24 hours): Temp Pulse Resp BP Pulse Ox 98.0 F 70 20 106/66 97 01/29/18 15:08 01/29/18 15:08 01/29/18 15:08 01/29/18 15:08 01/29/18 15:08 - Labs Labs: 01/29/18 08:11 01/29/18 08:11 PT 12.3 SECONDS (9.7-12.2) H 01/27/18 14:06 INR 1.1 01/27/18 14:06 APTT 29 SECONDS (21-34) 01/27/18 14:06 - Head Exam Head Exam: ATRAUMATIC - Eye Exam Eye Exam: Normal appearance - ENT Exam ENT Exam: Mucous Membranes Dry - Respiratory Exam Respiratory Exam: NORMAL BREATHING PATTERN - Cardiovascular Exam Cardiovascular Exam: +S1, +S2 - GI/Abdominal Exam GI & Abdominal Exam: Normal Bowel Sounds - Extremities Exam Extremities Exam: Pedal Edema Assessment and Plan (1) Deep venous thrombosis of lower extremity Assessment & Plan: provoked from trauma therapeutic anticoagulation outpatient f/u of inherited thrombophilia w/u Status: Acute (2) Pulmonary embolism Assessment & Plan: therapeutic anticoagulation Status: Acute
[2018-01-30 21:58] LABS: B2 GLYCOPROTEIN I AB(IGA) <9 SAU (<=20); B2 GLYCOPROTEIN I AB(IGG) <9 SGU (<=20); B2 GLYCOPROTEIN I AB(IGM) <9 SMU (<=20); CARDIOLIPIN AB (IGA) <11 APL (<=11); CARDIOLIPIN AB (IGG) <14 GPL (<=14); CARDIOLIPIN AB (IGM) <12 MPL (<=12)
[2018-01-30 22:22] LABS: PHOSPHATIDYLSERINE AB IGA <20 U/mL (<20); PHOSPHATIDYLSERINE AB IGG <10 U/mL (<10); PHOSPHATIDYLSERINE AB IGM <25 U/mL (<25)
== END 2018-01-29 17:25 | disposition home or self-care (01) | DRG 299 ==
LOC: C.ER 13:02 → C.9E 15:10 → C.5S 16:15
PROVIDERS: ADMIT Internal Medicine Nephrology; ATTEND Internal Medicine Nephrology
DX: I82.491 Acute embolism and thrombosis of other specified deep vein of right lower extremity (principal); I26.99 Other pulmonary embolism without acute cor pulmonale; S99.821A Other specified injuries of right foot, initial encounter; W20.8XXA Other cause of strike by thrown, projected or falling object, initial encounter; W18.30XA Fall on same level, unspecified, initial encounter; S83.91XA Sprain of unspecified site of right knee, initial encounter; Y93.41 Activity, dancing; Y92.89 Other specified places as the place of occurrence of the external cause